=== PATIENT | male | born 2005 | race Caucasian/White ===

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

== ENCOUNTER → 2025-06-04 16:46 | Outpatient (REF) | payer BC, SELFPAY ==
[2025-06-04 17:33] LABS: Hematocrit 48.5 % (39.0-52.0); Hemoglobin 16.3 g/dL (13.0-18.0); Mean Corp Hgb Conc. 33.6 g/dL (33.0-37.0); Mean Corpuscular Volume 89.2 fL (80.0-94.0); Nucleated Red Blood Cells % 0 % (-); Platelet Count 191 10^3/uL (130-400); Red Cell Dist. Width 13.3 % (11.5-14.5)
[2025-06-04 17:50] LABS: ALT (SGPT) 18 U/L (0-50); AST (SGOT) 29 U/L (17-59); Albumin 5.3 g/dl (3.5-5.0); Alkaline Phosphatase 61 U/L (38-126); Amylase 56 U/L (30-110); Blood Urea Nitrogen 11 mg/dl (9-20); Calcium 10.0 mg/dl (8.4-10.2); Carbon Dioxide 28 mmol/L (22-30); Chloride 101 mmol/L (98-107); Glucose 74 mg/dl (70-99); Lipase 101 U/L (23-300); Magnesium 2.2 mg/dl (1.6-2.3); Potassium 3.7 mmol/L (3.5-5.1); Sodium 138 mmol/L (135-145); Total Protein 8.8 g/dl (6.3-8.2); eGFR > 60.00
[2025-06-04 20:50] LABS: Free T3 4.66 pg/ml (2.77-5.27)
[2025-06-04 21:04] LABS: TSH 2.90 uIU/ml (0.47-4.68)
== END ==
LOC: CLAB 16:46
PROVIDERS: ATTENDING PHYSICIAN Family Medicine
DX: F50.9 Eating disorder, unspecified (principal); R63.6 Underweight
CPT/HCPCS: 36415; 80053; 82150; 83690; 83735; 84100; 84439; 84443; 84481; 85025